=== PATIENT | male | born 1990 | race Caucasian/White ===

== ENCOUNTER 2017-03-20 12:32 | Emergency (ER) | payer OTHER ==
[2017-03-20] MEDS ORDERED: LORazepam 2 MG/ML INJ ONE (12:42)
[2017-03-20] MEDS ORDERED: LORazepam 2 MG/ML INJ IVP ONE ×2 (12:45→14:25)
--- NOTE | 2017-03-20 12:45 | EDPHY ---
H & P Time Seen by Provider: 03/20/17 12:36 HPI/ROS: HPI: Reinaldo Mojica is a 27 yrs, male who presents with Chief Complaint: alcohol withdrawal Location: body Quality:shaking Duration: 2 days Signs and Symptoms: no fever, no chills, + nausea, + vomiting, no seizures, no confusion, + dull headache Timing: sudden, worsening Severity: moderate Context: history of daily alcohol abuse, admittedly drinks 1 pint Vodka daily. last drink 3 days ago. reports "self detox every other month." denies HI/SI/ hallucinations. politely declines wanting detox. Modifying Factors: REVIEW OF SYSTEMS: Constitutional: No fever Eyes: No blurred vision Respiratory: No shortness of breath, no cough Cardiovascular: No chest pain Gastrointestinal: No nausea, no vomiting no diarrhea Genitourinary: No dysuria Extremities: No myalgias Neurologic: No weakness, no numbness Skin: No rashes Hematologic: No bruising, no bleeding Past Medical/Surgical History: generally healthy. no surgeries. Physical Exam: CONSTITUTIONAL: young adult white male, polite, awake and alert, no obvious distress HEENT: Atraumatic and normocephalic, PERRL, EOMI. Tympanic membranes clear. . Oropharynx clear, no exudate and moist pink mucosa. Airway patent. No lymphadenopathy. No meningismus. Cardiovascular: Normal S1/S2, regular rate, regular rhythm, without murmur rub or gallop. PULMONARY/CHEST: Symmetrical and nontender. Clear to auscultation bilaterally Good air movement. No accessory muscle usage. ABDOMEN: Soft, nondistended, nontender, no rebound, no guarding, no peritoneal signs, no masses or organomegaly. No CVAT. EXTREMITIES: 2/2 pulses, no deformities, no clubbing, no cyanosis or edema. NEUROLOGICAL: no focal neuro deficits. GCS 15. tremulous SKIN: Warm and dry, no erythema. no rash. Good capillary refill. Constitutional: Initial Vital Signs Temperature (C) 36.9 C 03/20/17 12:46 Heart Rate 82 03/20/17 12:46 Respiratory Rate 18 03/20/17 12:46 Blood Pressure 143/102 H 03/20/17 12:46 O2 Sat (%) 97 03/20/17 12:46 O2 Delivery Mode Room Air Allergies/Adverse Reactions: No Known Drug Allergies Allergy (Verified 03/20/17 12:54) Home Medications: Medication Instructions Recorded chlordiazePOXIDE 25MG PREPK#6 1 btl TAKEHOME Q8HRS #6 btl 03/20/17 [Librium 25 mg Prepack#6] Medical Decision Making ED Course/Re-evaluation: no psychosis/seizure activity labs, IV medications CIWA score: 14; IV Ativan 1 mg given Thiamine, Folic acid, 1 liter NS Magnesium 1.0; IV MgSO4 4 grams 2:00 PM reassessed patient and CIWA 4; IV Ativan 1 mg given 2:45 PM reassessed and CIWA 0 d/c home with Librium take home and [facility] follow up Differential Diagnosis: Tremors including but not limited to electrolyte abnormality, alcohol withdrawal , seizure. - Data Points Laboratory Results: Laboratory Results 03/20/17 12:34 03/20/17 12:34 03/20/17 03/20/17 12:34 12:34 WBC 7.46 10^3/uL 10^3/uL (3.80-9.50) RBC 5.05 10^6/uL 10^6/uL (4.40-6.38) Hgb 17.1 g/dL g/dL (13.7-17.5) Hct 47.2 % % (40.0-51.0) MCV 93.5 fL fL (81.5-99.8) MCH 33.9 pg pg (27.9-34.1) MCHC 36.2 g/dL g/dL (32.4-36.7) RDW 12.3 % % (11.5-15.2) Plt Count 191 10^3/uL 10^3/uL (150-400) MPV 9.7 fL fL (8.7-11.7) Neut % (Auto) 82.6 % H % (39.3-74.2) Lymph % (Auto) 5.1 % L % (15.0-45.0) Barren % (Auto) 11.3 % % (4.5-13.0) Eos % (Auto) 0.1 % L % (0.6-7.6) Baso % (Auto) 0.5 % % (0.3-1.7) Nucleat RBC Rel Count 0.0 % % (0.0-0.2) Absolute Neuts (auto) 6.16 10^3/uL 10^3/uL (1.70-6.50) Absolute Lymphs (auto) 0.38 10^3/uL L 10^3/uL (1.00-3.00) Absolute Monos (auto) 0.84 10^3/uL H 10^3/uL (0.30-0.80) Absolute Eos (auto) 0.01 10^3/uL L 10^3/uL (0.03-0.40) Absolute Basos (auto) 0.04 10^3/uL 10^3/uL (0.02-0.10) Absolute Nucleated RBC 0.00 10^3/uL 10^3/uL (0-0.01) Immature Gran % 0.4 % % (0.0-1.1) Immature Gran # 0.03 10^3/uL 10^3/uL (0.00-0.10) Sodium 134 mEq/L mEq/L (134-144) Potassium 3.9 mEq/L mEq/L (3.5-5.2) Chloride 96 mEq/L L mEq/L (97-110) Carbon Dioxide 18 mEq/l L mEq/l (22-31) Anion Gap 20 mEq/L H mEq/L (8-16) BUN 7 mg/dL mg/dL (7-23) Creatinine 0.9 mg/dL mg/dL (0.7-1.3) Estimated GFR > 60 Glucose 104 mg/dL H mg/dL (70-100) Calcium 10.4 mg/dL mg/dL (8.5-10.4) Magnesium 1.0 mg/dL L mg/dL (1.6-2.3) Ethyl Alcohol < 10 mg/dL mg/dL (0-10) Medications Given: Discontinued Medications Folic Acid (Folic Acid) 1 mg PO EDNOW ONE Stop: 03/20/17 13:27 Last Admin: 03/20/17 14:08 Dose: 1 mg Magnesium Sulfate (Magnesium Sulf 2 Gm (Premix)) 50 mls @ 50 mls/hr IV EDNOW ONE Stop: 03/20/17 14:21 Last Admin: 03/20/17 14:15 Dose: 50 mls Sodium Chloride (Ns) 1,000 mls @ 0 mls/hr IV ONCE ONE PRN Reason: Wide Open Stop: 03/20/17 13:29 Last Admin: 03/20/17 14:08 Dose: 1,000 mls Lorazepam (Ativan Injection) 1 mg IVP EDNOW ONE Stop: 03/20/17 12:46 Last Admin: 03/20/17 12:52 Dose: 1 mg Departure - Departure Disposition: Home, Routine, Self-Care Clinical Impression: Alcohol withdrawal, Hypomagnesemia Instructions: Alcohol Withdrawal (ED) Additional Instructions: Take Librium 25 mg every 8 hours as needed for alcohol withdrawal. Referrals: Patient,NotPresent [Unknown] - As per Instructions [facility] Detox 24 Hours [Outside] - As per Instructions Prescriptions: chlordiazePOXIDE 25MG PREPK#6 [Librium 25 mg Prepack#6] 1 btl TAKEHOME Q8HRS #6 btl
[2017-03-20 12:57] LABS: % IMMATURE GRANULYOCYTES 0.4 % (0.0-1.1); ABSOLUTE IMMATURE GRANULOCYTES 0.03 10^3/uL (0.00-0.10); ADD DIFF? NO; ADD MORPH? NO; ADD SCAN? NO; ATYPICAL LYMPHOCYTE FLAG 0 (0-99); FRAGMENT RBC FLAG 0 (0-99); HEMATOCRIT 47.2 % (40.0-51.0); HEMOGLOBIN 17.1 g/dL (13.7-17.5); LEFT SHIFT FLG 0 (0-99); LIPEMIA HEMOLYSIS FLAG 90 (0-99); MEAN CELL HEMOGLOBIN 33.9 pg (27.9-34.1); MEAN CELL HEMOGLOBIN CONCENTR. 36.2 g/dL (32.4-36.7); MEAN CELL VOLUME 93.5 fL (81.5-99.8); MEAN PLATELET VOLUME 9.7 fL (8.7-11.7); PLATELET CLUMPS FLAG 10 (0-99); PLATELET COUNT 191 10^3/uL (150-400); RED BLOOD CELL COUNT 5.05 10^6/uL (4.40-6.38); RED CELL DISTRIBUTION WIDTH 12.3 % (11.5-15.2)
[2017-03-20 13:07] LABS: ANION GAP 20 mEq/L (8-16); CALCIUM 10.4 mg/dL (8.5-10.4); CARBON DIOXIDE 18 mEq/l (22-31); CHLORIDE 96 mEq/L (97-110); CREATININE 0.9 mg/dL (0.7-1.3); ETHANOL SERUM < 10 mg/dL (0-10); GLOMERULAR FILTRATION RATE > 60; GLUCOSE 104 mg/dL (70-100); POTASSIUM 3.9 mEq/L (3.5-5.2); SODIUM 134 mEq/L (134-144)
[2017-03-20] MEDS ORDERED: MAGNESIUM SULF 2 GM/WATER 50 ML IV ONE ×2 (13:22→13:40)
[2017-03-20] MEDS ORDERED: FOLIC ACID 1 MG TAB PO ONE (13:26)
[2017-03-20] MEDS ORDERED: NS 1,000 ML IV ONE (13:28)
[2017-03-20] MEDS ORDERED: CHLORDIAZEPOXIDE 25MG PREPK#6 BTL TAKEHOME ONE (14:55)
[2017-03-20] MEDS ORDERED: THIAMINE HCL 100 MG in NS 100 ML IV ONE (15:30)
[2017-03-20 15:31] VITALS: BP 150/90; PULSE 88; RESP 18; TEMP 98.4; O2SAT 96
== END 2017-03-20 15:40 | disposition home or self-care (01) ==
DX: F10.239 Alcohol dependence with withdrawal, unspecified (principal); E83.42 Hypomagnesemia; R11.2 Nausea with vomiting, unspecified
CPT/HCPCS: 96365; 96366; G0480; J2060; J3411